=== PATIENT | male | born 1950 | race Caucasian/White ===

== ENCOUNTER 2023-01-19 15:00 | Outpatient (CLI) | payer MEDICARE, OTHER, SELFPAY ==
--- NOTE | ~2023-01-19 | CT_ITS ---
EXAMINATION: CT LE LT wo con DATE: 01/19/2023 15:24 INDICATION: Left knee osteoarthritis for preoperative planning TECHNIQUE: High resolution computed tomography (CT) of the left lower extremity from the hip through the ankle was performed without intravenous contrast. Additional sagittal and coronal reconstructions were performed. Automated exposure control and iterative reconstruction technique were employed. The dose-length product was 2021.88 mGy-cm. COMPARISON: Left knee radiographs dated 01/12/2023 FINDINGS: Bone alignment is normal. No fracture or suspected osteonecrosis. There is and asymmetric approximate ly 2.5 cm lytic lesion with narrow zone of transition at the left ischium with central fat attenuatio n. No other suspicious lytic or blastic bone lesions. Polyarticular osteoarthritis which is moderate to severe at the bilateral sacroiliac joints. Mild osteoarthritis at the left, ankle and multiple tino nts in the left foot. Tricompartmental osteoarthritis at the left knee with small marginal osteophyte s in all 3 compartments. Tiny degenerative subchondral cysts along the weightbearing medial femoral c ondyle and along the medial tibial plateau. There is some early remodeling along the medial side of t he medial tibial plateau consistent with the severe medial compartment joint space narrowing evident on the prior weightbearing radiographs. No left knee joint effusion. There is a moderate-sized Kidd' s cyst. No pathologically enlarged pelvic or left inguinal lymphadenopathy. Small bilateral fat-conta ining inguinal hernias. IMPRESSION: 1. Tricompartmental osteoarthritis at the left knee repeat, severe at the medial compartment. 2. 2.4 cm right lytic lesion with narrow zone of transition and central fat attenuation at the left i schial which favors a benign etiology such as hemangioma or intraosseous lipoma. 3. Moderate-sized Kidd's cyst at the left popliteal fossa. Reviewed, dictated and finalized at location A. IMPRESSION: 1. Tricompartmental osteoarthritis at the left knee repeat, severe at the media l compartment. 2. 2.4 cm right lytic lesion with narrow zone of transition and central fat att enuation at the left ischial which favors a benign etiology such as hemangioma or intraosseous lipoma. 3. Moderate-sized Kidd's cyst at the left popliteal fossa.
== END 2023-01-19 15:01 | disposition home or self-care (01) ==
LOC: ANHIMG 15:07
PROVIDERS: Visit Provider Orthopaedic Surgery
DX: M17.12 Unilateral primary osteoarthritis, left knee (principal)
CPT/HCPCS: 73700

== ENCOUNTER 2023-08-10 07:49 | Outpatient (CLI) | payer MEDICARE, OTHER, SELFPAY ==
[2023-08-10 09:02] LABS: Basophils Absolute Auto 0.1 K/mm3 (0.0-0.1); Basophils Percent Auto 0.9 % (0.2-1.2); Eosinophils Absolute Auto 0.1 K/mm3 (0-0.3); Eosinophils Percent Auto 1.5 % (0-4.4); Hematocrit 41.8 % (42.0-52.0); Hemoglobin 13.9 g/dL (14.0-18.0); Immature Granulocyte Absolute 0.03 K/mm3 (0.00-0.031); Immature Granulocyte Percent A 0.4 % (0-0.5); Lymphocytes Absolute Auto 1.45 K/mm3 (0.9-3.2); Lymphocytes Percent Auto 21.2 % (18.3-44.2); Mean Corpuscular HGB Conc 33.3 g/dl (32-36); Mean Corpuscular Hemoglobin 29.5 pg (26-34); Mean Corpuscular Volume 88.7 fl (80-100); Mean Platelet Volume 9.4 fl (7.4-10.4); Monocytes Absolute Auto 0.6 K/mm3 (0.1-0.6); Monocytes Percent Auto 8.5 % (2.6-8.5); Neutrophils Absolute Auto 4.6 K/mm3 (1.3-6.7); Neutrophils Percent Auto 67.5 % (45.5-73.1); Platelet Count Result 195 k/mm3 (150-375); Red Blood Count 4.71 M/mm3 (4.6-6.20); Red Cell Distribution Width 12.5 % (11.5-14.5); White Blood Count 6.9 K/mm3 (4.5-10.0)
[2023-08-10 09:09] LABS: Albumin Level 4.4 g/dL (3.5-5.1)
[2023-08-10 09:11] LABS: Anion Gap 10 mmol/L (8-16); Blood Urea Nitrogen 23 mg/dL (9-20); Calcium 9.5 mg/dL (8.4-10.2); Carbon Dioxide 24 mmol/L (22-30); Chloride 104 mmol/L (98-107); Estimated Glomerular Filt Rate > 60; Glucose 145 mg/dL (65-110); Potassium 4.2 mmol/L (3.4-5.0); Sodium 138 mmol/L (137-145)
[2023-08-10 09:15] LABS: Urine Cotinine NEGATIVE
[2023-08-10 09:49] LABS: Hemoglobin A1C 6.9 % (<5.7)
== END 2023-08-10 07:50 | disposition home or self-care (01) ==
LOC: ANHSURGERY 07:55
PROVIDERS: Anesthesiology; Visit Provider Orthopaedic Surgery
DX: Z01.818 Encounter for other preprocedural examination (principal); M17.12 Unilateral primary osteoarthritis, left knee; Z79.899 Other long term (current) drug therapy
CPT/HCPCS: 80048; 80307; 82040; 83036; 85025; 86850; 86900; 86901; 87081

== ENCOUNTER 2023-08-23 00:30 | Day surgery (SDC) | payer MEDICARE, OTHER, SELFPAY ==
--- NOTE | 2023-08-10 07:48 | PC.NURSE ---
PRE-OP INSTRUCTIONS, PLEASE READ CAREFULLY Report to the Outpatient Waiting Room, entrance under the green pavilion located off [facility], at time _0600_ on date _08/23/23_. Planned Procedure Time: _0730_. PACK A SMALL OVERNIGHT BAG AND LEAVE IN THE CAR ALONG WITH YOUR WALKER Time changes happen often and if your time is changed the preop area will call you the afternoon before. - You and your visitor will be asked to self-screen and do not enter if you have any COVID symptoms. - A mask is optional within the hospital at this time. -VISITING HOURS 8AM-8PM Patients may have clear liquids (water, carbonated beverages, clear teas, apple juice) until 3 hours prior to surgery (0430 AM) with a maximum of 20 ounces. - No food from midnight until time of surgery Take the following medications with a SIP of water the morning of surgery: _NONE_ DO NOT STOP ANY OF YOUR OTHER PRESCRIPTION MEDICATIONS PRIOR TO SURGERY ?EXCEPT THE FOLLOWING Medications to discontinue per DR. MCPHERSON - _ASPIRIN 7 DAYS PRIOR TO SURGERY, Date to take last dose 08/15/23_ Medications to discontinue per ANESTHESIA - _VITAMINS/SUPPLEMENTS 3 DAYS PRIOR TO SURGERY, Date to take last dose 08/19/23_ Please no make-up, nail cypriot, hairspray, perfume, deodorant, or body powder the day of surgery. No jewelry (including any body piercings) or valuables the day of surgery, leave them at home. Please take a shower or bath the night before, or the morning of, surgery with an antibacterial soap. Wear comfortable, loose fitting clothing. - Jewelry must be removed prior to entering the operating room. Rings and piercings that are not removed may be cut off. - The hospital will not accept responsibility for valuables. - Please leave all valuables, including medications, at home the day of surgery. If you are going home after surgery, a licensed lumber driver must drive you home. - NO public transportation without another adult if you receive anesthesia. - We recommend that an adult stay with you for 24 hours following discharge. - We also recommend that you do not drive, make important decision, drink alcoholic beverages, or take any drugs that were not prescribed by your health care provider for at least 24 hours after your discharge time. Follow any additional instructions given to you from your surgeon. TOTAL JOINT CLASS TODAY 08/10/23 @ [address] [place] [address] ENTRANCE 2 - LOWER LEVEL If you or anyone in your household have experienced Covid symptoms in the past week, please notify your surgeon or the nurse liaison at the phone number below for possible testing. Instructions given to _PATIENT_and asked if any additional questions and then verbalized understanding. Patient advised to call surgeon office or pre surgery nurse liaison [phone] if any additional questions.
[2023-08-10 08:19] VITALS: BP 152/88; PULSE 96; RESP 20; TEMP 36.7; O2SAT 96; BMI 35.3
[2023-08-23] VITALS (12 sets, daily range): BP systolic 106–143; BP diastolic 70–91; PULSE 62–94; RESP 10–20; TEMP 36.2–37.2; O2SAT 91–98
--- NOTE | ~2023-08-23 | XR_ITS ---
EXAMINATION: [id number] DATE: 08/23/2023 10:31 INDICATION: Postoperative evaluation following left total knee arthroplasty. TECHNIQUE: Anteroposterior and lateral views of the left knee were obtained. COMPARISON: None. FINDINGS: Left total knee arthroplasty with patellar resurfacing appears well seated and in near anatomic align ment. No fractures identified. Enthesophytes along the anterior patella. Expected postoperative subc utaneous and intra-articular gas. IMPRESSION: 1. Left total knee arthroplasty, negative for postoperative purposes. Reviewed, dictated and finalized at location A. NESS OBJECTS
[2023-08-23] MEDS: LACTATED RINGERS 1,000 ML 30 ML IV CONT ×2 (06:55→10:06)
--- NOTE | 2023-08-23 07:04 | WPDANESEPPF ---
Anes - Initial Pre Proc Eval Procedure: Operation Date: 08/23/23 07:30 Proposed Procedures p Left Custom Total Knee Arthroplasty - Silas Escalante MD Date/Time: 08/23/23 07:04 Surgeon: Silas Escalante MD Pre Op Diagnosis: primary oa left knee Patient Data Age: 73 Gender: M Height: 1.83 m Weight: 118.2 kg Last Vital Signs Temp 36.7 C 08/10/23 08:19 Pulse 96 08/10/23 08:19 Resp 20 08/10/23 08:19 BP 152/88 H 08/10/23 08:19 Pulse Ox 96 08/10/23 08:19 O2 Del Method Room Air 08/10/23 08:19 Allergies Allergy/AdvReac Type Severity Reaction Status Date / Time No Known Allergies Allergy Verified 08/10/23 09:17 Home Medications Medication Instructions Recorded Confirmed Type aspirin 81 mg tablet,delayed 81 mg PO DAILY 01/11/23 08/10/23 History release (Adult Low Dose Aspirin) hydrochlorothiazide 12.5 mg capsule 12.5 mg PO DAILY 01/11/23 08/10/23 History lisinopril 40 mg tablet 40 mg PO DAILY 01/11/23 08/10/23 History simvastatin 40 mg tablet 40 mg PO DAILY 01/11/23 08/10/23 History terazosin 10 mg capsule 10 mg PO DAILY 01/11/23 08/10/23 History celecoxib 200 mg capsule 200 mg PO DAILY #90 caps 01/13/23 08/10/23 Rx cholecalciferol (vitamin D3) 125 125 mcg PO DAILY 08/10/23 08/10/23 History mcg (5,000 unit) capsule krill oil 500 mg capsule 500 mg PO DAILY 08/10/23 08/10/23 History Patient hx anesthesia problems: none Family hx anesthesia problems: post op nausea/vomiting Results Review: All pre-operative results and documents have been reviewed as part of the pre-operative evaluation. [facility] Past Medical History Medical History Compound fracture Left arm Primary osteoarthritis of left knee Surgical History Surgical History Hx of tonsillectomy Family History Family History Father Lung cancer Social History Social History Smoking status: Never smoker Second hand tobacco smoke exposure: No Additional smoking assessment comments: PT DENIES ALL FORMS OF TOBACCO USE Alcohol intake: current Drinks per week: 2 Alcohol use details: 2 drinks a week Substance use: never Substance use type: does not use Lack of Transportation: No Lack of Food: Never True Current Housing: I Have Housing Concerned About Future Housing: No Difficulty Paying Gas/Electric Bills: No Difficulty Paying for Meds: No Currently Unemployed: No Education: Master's Degree or Higher Difficulty w/ Childcare or Family Care: No Living arrangements: alone Additional living arrangements comments: STAYING WITH BROTHER POST OP Spiritual care concerns: No Anes - Eval Final PreProcedure Day of Procedure 08/23/23 07:04 Patient weight: obese Heart: regular rate and rhythm Lungs: clear to auscultation Airway: Mallampati scale class II Neurological: alert and oriented Last oral intake: >/= 8 hours ASA classification: III Emergent: no Anesthetic plan: proceed Anesthesia type and monitoring: general LMA and standard monitoring Results Review: All pre-operative results and documents have been reviewed as part of the pre-operative evaluation. Informed Consent: The patient's anesthetic plan and its attendant risks and benefits were discussed with the patient/family/POA. Questions were solicited and answers provided to the satisfaction of the patient/family/POA.
[2023-08-23] MEDS: ACETAMINOPHEN 500 MG TABLET 1000 MG PO ×2 (07:05→21:11)
--- NOTE | 2023-08-23 07:13 | WPDHPUPDATE1 ---
History and Physical Update Update Date/Time: 08/23/23 07:13 History and Physical has been reviewed, including an updated exam of the patient. There are NO changes in the patient's condition. Risks, benefits, and alternatives have been discussed and questions answered. Patient agrees to proceed with procedure.
[2023-08-23] MEDS: TRANEXAMIC ACID 1,000MG/ISO100 1,000 MG/100 ML BAG 200 MG IVPB (07:29)
[2023-08-23] MEDS: ceFAZolin 2 GM/D5W 50 ML 2 GM/50 ML BAG IVPB (07:29)
--- NOTE | 2023-08-23 08:03 | WPDANESPNB ---
Anes - Peripheral Nerve Block Date/Time: 08/23/23 08:03 I have discussed with the patient/family/POA the placement of a peripheral nerve block for post-operative pain management, including associated risks, benefits, complications, and side effects. Alternative methods of post-operative analgesia were detailed. Questions were solicited and answers provided to the satisfaction of the patient/family/POA. Time-Out: A pre-procedural Time-Out was completed immediately before starting the procedure and confirmed: Patient Identification, Site, Procedure, Patient Position and the Availability of Requisite Equipment. Clinical Indications: Acute post-operative pain management requested by the operative surgeon. Nerve Block Insertion Note Anes-nerve block: adductor canal left Patient position: supine Skin prep: chlorhexidine Needle: 22 gauge, stimulating, insulated echogenic needle. Needle length: 80 mm Technique: ultrasound Technique comment: mid2mg [id number] Injectate: bupivacaine 0.5% with epi 5 mcg/ml (30ml no epi) and dexamethasone (mg) (4) Observations: tolerated well Complications: none Procedure start time:: 709 Procedure end time:: 716
[2023-08-23] MEDS: GENTAMICIN BONE CEMENT REFOBACIN 1 EACH TOPICAL (08:34)
--- NOTE | 2023-08-23 09:50 | P.OP_ITS ---
Procedure Note - Detailed Date of Procedure 08/23/23 Pre-op Diagnosis primary oa left knee Post-op Diagnosis Same Procedure Performed Total knee arthroplasty, left knee. Surgeon Silas Escalante MD Anesthesia General and Regional (Subsartorial block.) Findings Excellent bone quality. Mild medial release and PCL release. Description of Procedure Preoperative antibiotics were given. The limb was prepped and draped in the usual sterile fashion with a well-padded tourniquet high on the thigh. The limb was exsanguinated and the tourniquet inflated to 300 mmHg. A longitudinal incision was created just medial to the patella. A trivector approach to the knee was performed. Arthrotomy was taken down through the joint capsule. No significant releases were initially taken. The femur was exposed and the F1 jig was applied. The coring tool was used to remove the cartilage for the F2 jig to sit flush with the bone. The jig was pinned and the distal cut carefully taken. Caliper measurements confirmed appropriate bony resections according to the preoperative templated plan. The F4 cutting jig for the femur was applied, at the standard rotation. The AP and anterior chamfer cuts were taken. The F5 jig was applied and the posterior chamfer cuts were taken. The tibia was prepared using the T1 jig, after removing cartilage for the jig contact points. Proper alignment was checked with the alignment imelda. The tibia was cut using the T1u guide. Gap balancing was performed. Gap measurements were taken and the knee was trialed. Excellent alignment and soft tissue balancing was confirmed. The posterior cruciate ligament was recessed along the proximal tibia. The patella was cut for resurfacing. Three lug holes were drilled. Meniscal remnants were removed. The trial components were assembled. Excellent range of motion and proper soft tissue balancing were confirmed throughout the full range of motion. Patellar tracking was excellent. The knee was copiously irrigated periodically throughout the procedure. The real implants were c emented into position. Excess cement was carefully removed. The wound was closed in layers with interrupted #1 Vicryl suture, #2 strata fix suture, 2-0 strata fix suture, 3-0 strata fix suture. Steri-Strips placed on the skin with the knee flexed. Sterile bulky dressing applied. The patient was brought to the recovery room in stable condition. There were no complications. Implants [employer] total knee arthroplasty. Cemented. Cruciate retaining. 7 mm insert. 38 mm oval patella. Estimated Blood Loss 50 Tourniquet Time Total Tourniquet Time: 80 Drains No Complications No immediate complications Condition Stable Disposition PACU [facility] Billing Surgery - Charge Forward: Surgery Billing
--- NOTE | 2023-08-23 12:46 | ADMGEN ---
This patient, Felix Demarco, was admitted to 3 [facility] Surg Room 325-01. Patient/family oriented to hospital policies and general routines including ID bracelet, bed and alarms, visiting hours, pain management, procedures, bathroom and other care routines, personal items, smoking policy, room service/diet, and visiting hours. Information on how to activate the Rapid Response Team has been discussed. Patient/Family are encouraged to report perceived risks to care and to ask questions if they do not understand what they are told or what they should do. Report from [place] in or.
[2023-08-23] MEDS: CHOLECALCIFEROL 1,000 UNITS TABLET 5000 UNITS PO (13:35)
[2023-08-23] MEDS: hydroCHLOROthiazide 12.5 MG CAPSULE PO (13:36)
[2023-08-23] MEDS: SIMVASTATIN 20 MG TABLET 40 MG PO (13:36)
[2023-08-23] MEDS: ceFAZolin 1 GM/NS 50 ML 1 GM/50 ML BAG IVPB ×2 (15:22→23:27)
--- NOTE | 2023-08-23 15:41 | PHAR ---
PT'S HOME MED KETOROLAC 0.4% OPTH SOLN AND REFRESH TEARS LUBRICANT EYE DROPS VERIFIED BY PHARMACY
[2023-08-23] MEDS: ASPIRIN 81 MG ENTERIC TABLET PO (17:09)
[2023-08-23] MEDS: SENNA/DOCUSATE SODIUM TABLET 2 TAB PO (17:10)
[2023-08-24 01:02] VITALS: BP 142/91; PULSE 73; RESP 19; TEMP 36.4; O2SAT 97
[2023-08-24 05:02] VITALS: BP 138/83; PULSE 72; RESP 19; TEMP 36.6; O2SAT 96
[2023-08-24] MEDS: ACETAMINOPHEN 500 MG TABLET 1000 MG PO (05:39)
[2023-08-24 06:28] LABS: Anion Gap 5 mmol/L (8-16); Basophils Percent Auto 0.1 % (0.2-1.2); Blood Urea Nitrogen 19 mg/dL (9-20); Calcium 8.9 mg/dL (8.4-10.2); Carbon Dioxide 26 mmol/L (22-30); Chloride 103 mmol/L (98-107); Eosinophils Percent Auto 0.1 % (0-4.4); Estimated CRCL calculation 86 ml/min; Estimated Glomerular Filt Rate > 60; Glucose 140 mg/dL (65-110); Hematocrit 34.4 % (42.0-52.0); Hemoglobin 11.5 g/dL (14.0-18.0); Immature Granulocyte Absolute 0.06 K/mm3 (0.00-0.031); Immature Granulocyte Percent A 0.6 % (0-0.5); Lymphocytes Absolute Auto 0.88 K/mm3 (0.9-3.2); Lymphocytes Percent Auto 8.1 % (18.3-44.2); Mean Corpuscular HGB Conc 33.4 g/dl (32-36); Mean Corpuscular Hemoglobin 29.9 pg (26-34); Mean Corpuscular Volume 89.4 fl (80-100); Monocytes Absolute Auto 1.4 K/mm3 (0.1-0.6); Monocytes Percent Auto 12.6 % (2.6-8.5); Neutrophils Absolute Auto 8.5 K/mm3 (1.3-6.7); Neutrophils Percent Auto 78.5 % (45.5-73.1); Platelet Count Result 181 k/mm3 (150-375); Potassium 4.1 mmol/L (3.4-5.0); Red Blood Count 3.85 M/mm3 (4.6-6.20); Red Cell Distribution Width 12.3 % (11.5-14.5); Sodium 134 mmol/L (137-145); White Blood Count 10.9 K/mm3 (4.5-10.0)
[2023-08-24 07:57] VITALS: BP 140/85; PULSE 64; RESP 20; TEMP 36.4; O2SAT 96
--- NOTE | 2023-08-24 08:26 | WPDANESPN ---
Anes - Prog Note Post-Op Date/Time: 08/24/23 08:26 Cardiovascular status: normal Respiratory status: normal Airway patency: baseline Mental status: baseline Post-Op hydration status: normal Vital Signs: Last Vital Signs Temp 36.4 C 08/24/23 07:57 Pulse 64 08/24/23 07:57 Resp 20 08/24/23 07:57 BP 140/85 08/24/23 07:57 Pulse Ox 96 08/24/23 07:57 O2 Del Method Room Air 08/23/23 14:36 O2 Flow Rate 8 08/23/23 10:20 Pain Score (VAS): 0 I/O: Intake & Output 08/23/23 08/24/23 08/24/23 23:59 07:59 15:59 Intake Total 270 300 Output Total 280 625 Balance -10 -325 Laboratory Tests 08/24/23 05:54 08/24/23 05:54 08/24/23 05:54 WBC 10.9 H RBC 3.85 L Hgb 11.5 L Hct 34.4 L MCV 89.4 MCH 29.9 MCHC 33.4 RDW 12.3 Plt Count 181 MPV 10.0 Immature Gran % (Auto) 0.6 H Neut % (Auto) 78.5 H Lymph % (Auto) 8.1 L [place] % (Auto) 12.6 H Eos % (Auto) 0.1 Baso % (Auto) 0.1 L Lymph # (Auto) 0.88 L [place] # (Auto) 1.4 H Eos # (Auto) 0.0 Baso # (Auto) 0.0 Abs Immat Gran (auto) 0.06 H Absolute Neuts (auto) 8.5 H Absolute Nucleated RBC 0.0 Nucleated RBC % 0.0 Sodium 134 L Potassium 4.1 Chloride 103 Carbon Dioxide 26 Anion Gap 5 L BUN 19 Creatinine 0.90 Estim Creat Clear Calc 86 Estimated GFR > 60 Glucose 140 H Calcium 8.9 Post-procedural complaints: none Patient Feedback: Patient satisfied with anesthetic care.
[2023-08-24] MEDS: oxyCODONE HCL (*CRX) 5 MG TAB IR 10 MG PO ×2 (09:22→13:12)
[2023-08-24] MEDS: ceFAZolin 1 GM/NS 50 ML 1 GM/50 ML BAG IVPB (09:27)
[2023-08-24] MEDS: SENNA/DOCUSATE SODIUM TABLET 2 TAB PO (09:30)
[2023-08-24] MEDS: hydroCHLOROthiazide 12.5 MG CAPSULE PO (09:32)
[2023-08-24] MEDS: CHOLECALCIFEROL 1,000 UNITS TABLET 5000 UNITS PO (09:32)
[2023-08-24] MEDS: CELECOXIB 200 MG CAPSULE PO (09:33)
[2023-08-24] MEDS: TERAZOSIN HCL 5 MG CAPSULE 10 MG PO (09:33)
[2023-08-24] MEDS: ASPIRIN 81 MG ENTERIC TABLET PO (09:33)
[2023-08-24] MEDS: SIMVASTATIN 20 MG TABLET 40 MG PO (09:33)
[2023-08-24] MEDS: predniSONE 5 MG TABLET PO (09:33)
[2023-08-24] MEDS: lisinopriL 20 MG TABLET 40 MG PO (09:33)
[2023-08-24] MEDS: polyethylene glycoL 3350 17 GM POWD.PACK PO (09:34)
[2023-08-24 12:36] VITALS: BP 116/72; PULSE 97; RESP 19; TEMP 36.8; O2SAT 98
--- NOTE | 2023-08-24 12:46 | PM.DS ---
DS: Admitting Diagnosis Discharge Date 08/24/23 Admitting Diagnosis OA knee Left DS: Discharge Diagnosis Discharge Diagnosis (1) Status post total left knee replacement: Code(s): Z96.652 - Presence of left artificial knee joint Status: Acute Plan Postop day 1: Left total knee arthroplasty. Patient tolerated procedure well. No complications. Pain manageable with pain medication. No numbness or tingling. We had a lengthy discussion regarding postoperative wound care, limitations, expectations, and exercises. Patient shows good understanding. He has had initial physical therapy and is tolerating it well. DVT prophylaxis: 81 mg baby aspirin b.i.d. for 14 days. Pain medication: Percocet. Celebrex. Prednisone. Patient has followup appointment with Dr. Escalante in 3 weeks. DS: Summary Hospital Course Reason for hospitalization: Total knee arthroplasty Hospital Course: Patient tolerated procedure well. Has had initial PT/OT. Status at Discharge Functional status at discharge: uses cane/walker Overall status at discharge: patient is progressing back to baseline Time Spent with Patient Time attestation: Total time spent providing and/or coordinating discharge services: Exam Narrative: 73-year-old overweight male. Resting comfortably in chair. Alert and oriented x3. No acute distress. Wearing compression socks bilaterally. Dressing dry and intact without drainage. Moderate swelling. No ecchymosis. No erythema. No hematoma. Range of motion limited due to pain. Calf nontender. Neurologic status intact. No varicosities. Distal pulses palpable. DS: Data Data Completed and Pending Labs on day of discharge: Labs from last 24 hours 08/24/23 05:54 WBC 10.9 H RBC 3.85 L Hgb 11.5 L Hct 34.4 L MCV 89.4 MCH 29.9 MCHC 33.4 RDW 12.3 Plt Count 181 MPV 10.0 Immature Gran % (Auto) 0.6 H Neut % (Auto) 78.5 H Lymph % (Auto) 8.1 L [place] % (Auto) 12.6 H Eos % (Auto) 0.1 Baso % (Auto) 0.1 L Lymph # (Auto) 0.88 L [place] # (Auto) 1.4 H Eos # (Auto) 0.0 Baso # (Auto) 0.0 Abs Immat Gran (auto) 0.06 H Absolute Neuts (auto) 8.5 H Absolute Nucleated RBC 0.0 Nucleated RBC % 0.0 Sodium 134 L Potassium 4.1 Chloride 103 Carbon Dioxide 26 Anion Gap 5 L BUN 19 Creatinine 0.90 Estim Creat Clear Calc 86 Estimated GFR > 60 Glucose 140 H Calcium 8.9 Discharge Plan Discharge Patient Disposition: Home, Self-Care Discharge Instructions: See green instruction sheets. Stand Alone Forms: General Discharge Instructions Follow-up/Referrals: Jacki Rodriguez PA [Physician Screen Machine Operator] - Discharge Medications: New prednisone 5 mg tablet 5 mg PO DAILY 21 Days Qty: 21 0RF aspirin 81 mg tablet,delayed release (DR/EC) 81 mg PO BID 14 Days Qty: 28 0RF oxycodone-acetaminophen 5-325 mg tablet 1 - 2 tablet PO Q4-6H MDD 6 PRN (Reason: pain) Qty: 30 0RF Continued lisinopril 40 mg tablet 40 mg PO DAILY terazosin 10 mg capsule 10 mg PO DAILY simvastatin 40 mg tablet 40 mg PO DAILY aspirin [Adult Low Dose Aspirin] 81 mg tablet,delayed release (DR/EC) 81 mg PO DAILY cholecalciferol (vitamin D3) 125 mcg (5,000 unit) Capsule 125 mcg PO DAILY krill oil 500 mg Capsule 500 mg PO DAILY ketorolac 0.4 % Drops 1 drp LEFT EYE TID Refresh Tears 1 drp EACH EYE TID hydrochlorothiazide 25 mg tablet 25 mg PO DAILY celecoxib 200 mg capsule 200 mg PO DAILY Qty: 90 0RF
== END 2023-08-24 14:00 | disposition home or self-care (01) ==
LOC: ANHSURGERY 06:02 → ANH3MEDSUR 11:19
PROVIDERS: Visit Provider Orthopaedic Surgery
PROC: (CPT 27447; principal; 2023-08-23 07:30)
DX: M17.12 Unilateral primary osteoarthritis, left knee (principal); G89.18 Other acute postprocedural pain; Z79.82 Long term (current) use of aspirin; E66.9 Obesity, unspecified; Z68.35 Body mass index [BMI] 35.0-35.9, adult
CPT/HCPCS: 27447; 64447; 36415; 73560; 80048; 85025; 97110; 97116; 97161; 97165; 97530; 97535; A9270; C1713; C1776; J0171; J0690; J1100; J1170; J1885; J2250; J2270; J2405; J2704; J2795; J3010; J7120; J7512

== ENCOUNTER 2023-09-14 08:22 | Outpatient (CLI) | payer MEDICARE, OTHER, SELFPAY ==
--- NOTE | ~2023-09-14 | XR_ITS ---
XR knee LT min 4V DATE: 09/14/2023 08:42 INDICATION: Joint replacement surgery TECHNIQUE: [place], standing AP, PA and lateral views COMPARISON: 01/12/2023 left knee FINDINGS: Status post left total knee arthroplasty with patellar resurfacing since 01/12/2023. No fracture or dislocation, periosteal reaction or bone destruction, joint effusion. Superior pole pa tellar enthesopathy at quadriceps tendon insertion. IMPRESSION: Status post left total knee arthroplasty with patellar resurfacing Reviewed, dictated and finalized at location B. R MACHINE OPERATOR HELPER
== END 2023-09-14 08:23 | disposition home or self-care (01) ==
PROVIDERS: Visit Provider Orthopaedic Surgery
DX: Z47.1 Aftercare following joint replacement surgery (principal); Z96.652 Presence of left artificial knee joint
CPT/HCPCS: 73564